=== PATIENT | female | born 1995 | race Two or more races ===

== ENCOUNTER 2017-07-31 16:34 | Emergency (ER) | payer MEDICAID ==
[~2017-07-31] VITALS: Ht 157.5 cm; Wt 97.5 kg
[2017-07-31 16:43] VITALS: BP 148/80
== END 2017-07-31 17:20 | disposition home or self-care (01) ==
LOC: ER 16:36
DX: J06.9 Acute upper respiratory infection, unspecified (principal); H65.92 Unspecified nonsuppurative otitis media, left ear; H66.91 Otitis media, unspecified, right ear; Z90.89 Acquired absence of other organs
CPT/HCPCS: A4606; Z7610

== ENCOUNTER → 2018-01-11 | Emergency (ER) | payer MEDICAID ==
[~2018-01-11] VITALS: Ht 157.5 cm; Wt 97.1 kg
[~2018-01-11] MED LIST: ACETAMINOPHEN ES 500 MG TABLET ONE; ACETAMINOPHEN ES 500 MG TABLET PO ONE
[2018-01-11 17:42] VITALS: BP 119/76
== END ==
LOC: ER 17:38
DX: S09.8XXA Other specified injuries of head, initial encounter (principal); Z90.89 Acquired absence of other organs; V49.59XA Passenger injured in collision with other motor vehicles in traffic accident, initial encounter; Y93.89 Activity, other specified; Y92.410 Unspecified street and highway as the place of occurrence of the external cause; Y99.8 Other external cause status
CPT/HCPCS: 99282; A4606; Z7610

== ENCOUNTER 2018-05-01 15:35 | Emergency (ER) | payer MEDICAID, OTHER ==
[~2018-05-01] VITALS: Ht 154.9 cm; Wt 96.6 kg
--- NOTE | 2018-05-01 15:36 | NUR ---
BIB SELF, W C/O N/V SINCE YESTERDAY, 17WKS , A1. TO ER BED 1, HOOKED TO MONITOR, AWAITING MD MUIR.
--- NOTE | 2018-05-01 16:55 | NUR ---
PA AT BEDSIDE
[2018-05-01 17:23] LABS: BASOPHILS # (AUTO) 0.1 /CMM (0.0-0.2); BASOPHILS % (AUTO) 0.8 % (0.0-2.0); EOSINOPHILS % (AUTO) 0.8 % (0.0-6.0); HEMATOCRIT 39 % (33-45); HEMOGLOBIN 13.6 g/dL (11.5-14.8); LYMPHOCYTES # (AUTO) 2.1 /CMM (0.8-4.8); LYMPHOCYTES % (AUTO) 20.9 % (20.0-44.0); MEAN CORPUSCULAR HGB CONC 35 g/dl (31.0-36.0); MEAN CORPUSCULAR VOLUME 82 fL (82-100); MONOCYTES # (AUTO) 0.5 /CMM (0.1-1.30); MONOCYTES % (AUTO) 4.8 % (2.0-12.0); NEUTROPHILS # (AUTO) 7.5 /CMM (1.8-8.9); NEUTROPHILS % (AUTO) 72.7 % (43.0-81.0); PLATELET COUNT (AUTO) 139 /CMM (150-450); RED BLOOD CELL COUNT(AUTO) 4.81 MIL/uL (4.0-5.2); WHITE BLOOD COUNT (AUTO) 10.3 K/uL (4.3-11.0)
[2018-05-01] MEDS ORDERED: ONDANSETRON HCL/PF 4 MG/2 ML VIAL IVP ONE (17:30)
[2018-05-01] MEDS ORDERED: IV NS 0.9% 1,000 ML BAG IV ONE (17:30)
[2018-05-01 17:33] LABS: CALCIUM, SERUM 8.8 mg/dL (8.5-10.1); CREATININE 0.5 mg/dL (0.6-1.3); POTASSIUM 3.5 mmol/L (3.5-5.1)
[2018-05-01] MEDS ORDERED: ONDANSETRON HCL/PF 4 MG/2 ML VIAL ONE (17:33)
[2018-05-01 17:38] LABS: ALBUMIN 2.9 g/dL (3.4-5.0); BILIRUBIN,DIRECT 0.1 mg/dL (0.0-0.2); BILIRUBIN,TOTAL 0.2 mg/dL (0.2-1.0); TOTAL PROTEIN, SERUM 7.4 g/dL (6.4-8.2)
[2018-05-01 18:00] LABS: APPEARANCE,URINE Clear (CLEAR); BILIRUBIN,URINE Negative (NEGATIVE); BLOOD, URINE Negative Ery/uL (NEGATIVE); COLOR,URINE Yellow (YELLOW); KETONES,URINE 15 (NEGATIVE); LEUKOCYTE ESTERASE ,URINE Small (NEGATIVE); NITRITE, URINE Negative (NEGATIVE); PROTEIN,URINE Negative (NEGATIVE); UGLUCOSE Negative (NEGATIVE); UROBILINOGEN,URINE 0.2 EU/dL (0.2)
[2018-05-01 18:22] LABS: RBC,URINE NONE SEEN /HPF (0-2)
[2018-05-01 18:23] LABS: BACTERIA,URINE Few /HPF (None Seen); SQUAMOUS EPITHELIAL CELL,UR Few /HPF (None Seen)
--- NOTE | 2018-05-01 19:40 | NUR ---
IV removed. Catheter intact and site benign. Pressure and 4x4 applied to site. No bleeding noted. Patient discharged to home in stable condition. Written and verbal after care instructions given. Patient verbalizes understanding of instruction. ambulatory with a steady gait
[2018-05-01 19:43] VITALS: BP 121/61
== END 2018-05-01 19:43 | disposition home or self-care (01) ==
LOC: ER 15:38
DX: O21.9 Vomiting of pregnancy, unspecified (principal); E86.0 Dehydration; Z3A.17 17 weeks gestation of pregnancy; Z90.89 Acquired absence of other organs
CPT/HCPCS: 36415; 80048; 80076; 81001; 83690; 85025; 87086; 96361; 96374; 99283; A4606; J2405; J7030; Z7610; 81000-TC

== ENCOUNTER 2021-08-27 22:17 | Emergency (ER) | payer BC, OTHER ==
[~2021-08-27] VITALS: Ht 157.5 cm; Wt 113.4 kg
--- NOTE | 2021-08-27 23:10 | NUR ---
PATRICIA. DIZZINESS AND SYNCOPAL EPISODE X 1 (2100H). PT BEEN HAVING FLU SYMPTOMS X 2 DAYS. PATIENT PLACED COMFORTABLY IN BED. VITALS CHECKED. CHANGED TO HOSPITAL GOWN
[2021-08-27] MEDS ORDERED: diphenhydrAMINE HCL 50 MG/ML VIAL ONE (23:27)
[2021-08-27] MEDS ORDERED: KETOROLAC TROMETHAMINE 15 MG/ML VIAL ONE (23:27)
[2021-08-27] MEDS ORDERED: METOCLOPRAMIDE HCL 10 MG/2 ML VIAL ONE (23:27)
[2021-08-27] MEDS ORDERED: IV NS 0.9% 1,000 ML IV PRN ×2 (23:30)
[2021-08-27] MEDS ORDERED: diphenhydrAMINE HCL 50 MG/ML VIAL IV ONE (23:30)
[2021-08-27] MEDS ORDERED: IV NS 0.9% 1,000 ML BAG IV ONE (23:30)
[2021-08-27] MEDS ORDERED: KETOROLAC TROMETHAMINE INJ 30 MG/ML VIAL IV ONE (23:30)
[2021-08-27] MEDS ORDERED: METOCLOPRAMIDE HCL 10 MG/2 ML VIAL IV ONE (23:30)
--- NOTE | 2021-08-27 23:30 | NUR ---
IV CANNULA G20 INSERTED ON LEFT AC USING G20. BLOOD DRAWN AND SENT TO LAB
[2021-08-27 23:47] LABS: BASOPHILS % (AUTO) 0.1 % (0.0-2.0); HEMATOCRIT 42 % (33-45); HEMOGLOBIN 13.8 g/dL (11.5-14.8); LYMPHOCYTES # (AUTO) 0.3 K/uL (0.8-4.8); LYMPHOCYTES % (AUTO) 3.1 % (20.0-44.0); MEAN CORPUSCULAR HGB CONC 33 g/dl (31.0-36.0); MEAN CORPUSCULAR VOLUME 83 fL (82-100); MONOCYTES # (AUTO) 0.2 K/uL (0.1-1.30); MONOCYTES % (AUTO) 2.1 % (2.0-12.0); NEUTROPHILS # (AUTO) 7.8 K/uL (1.8-8.9); NEUTROPHILS % (AUTO) 94.7 % (43.0-81.0); PLATELET COUNT (AUTO) 118 K/uL (150-450); RED BLOOD CELL COUNT(AUTO) 5.06 MIL/uL (4.0-5.2); WHITE BLOOD COUNT (AUTO) 8.3 K/uL (4.3-11.0)
[2021-08-27 23:54] LABS: CREATININE 0.8 mg/dL (0.6-1.3); POTASSIUM 3.7 mmol/L (3.5-5.1)
[2021-08-28] MEDS ORDERED: IV NS 0.9% 1,000 ML IV PRN (01:30)
[2021-08-28 02:15] LABS: CALCIUM, SERUM 8.4 mg/dL (8.5-10.1)
[2021-08-28] MEDS ORDERED: LOPE-83 PO (02:16)
[2021-08-28] MEDS ORDERED: ONDA4TAB11 PO (02:17)
[2021-08-28 02:29] VITALS: BP 94/51
--- NOTE | 2021-08-28 02:31 | NUR ---
Patient discharged to home in stable condition. Written and verbal after care instructions given. Patient verbalizes understanding of instruction.
== END 2021-08-28 02:32 | disposition home or self-care (01) ==
LOC: ER 22:21
DX: A08.4 Viral intestinal infection, unspecified (principal); Z90.89 Acquired absence of other organs
CPT/HCPCS: 36415; 80048; 85025; 93005; 96361 ×2; 96374; 96375; 99284; J1200; J1885; J2765; J7030 ×3